=== PATIENT | female | born 1985 | race Asian ===

== ENCOUNTER 2017-08-12 08:56 | Day surgery (SDC) | payer BC ==
[~2017-08-12] VITALS: Ht 121.9 cm; Wt 36.9 kg
[2017-08-12 09:30] VITALS: Ht 121.9 cm; Wt 36.9 kg
[2017-08-12] MEDS ORDERED: PRED1TAB17 PO (09:49)
[2017-08-12] MEDS ORDERED: AZAT50TA31 PO (09:49)
[2017-08-12] MEDS ORDERED: FERR140T2 PO (09:49)
[2017-08-12] MEDS ORDERED: PROPOFOL 40 ML ONE (10:12)
[2017-08-12] MEDS ORDERED: LIDOCAINE 100 MG SYRINGE ONE (10:12)
[2017-08-12 10:27] VITALS: BP 109/67; PULSE 85; RESP 18
--- NOTE | 2017-08-12 10:47 | OPPN ---
Date/Time of Note Date/Time of Note DATE: 08/12/17 TIME: 10:46 Proc Note GI Procedure Date 08/12/17 Indication: diagnostic Pre-procedure Diagnosis Iron deficiency anemia Post-procedure Diagnosis EGD Gastritis Colonoscopy Normal into terminal ileum Procedure Performed: Endoscopy, Colonoscopy Surgeon see signature line General Assistant none Anesthesia Type: MAC Tourniquet Time none EBL none Transfusion required none Biopsy 1: Gastric biopsy Grafts/Implants none Tubes/Drains none Complication(s) none Disposition: PACU Procedure Description Dictated JEREL ERAZO MD Aug 12, 2017 10:47
[2017-08-12 11:20] VITALS: BP 112/64; RESP 20
--- NOTE | 2017-08-12 12:40 | GILP ---
DATE OF PROCEDURE: PROCEDURE PERFORMED: Esophagogastroduodenoscopy with biopsy. INDICATION: A 31-year-old female undergoing this procedure for iron deficiency anemia. The patient has got lupus erythematosus. The risk of the procedure, related and unrelated complications, anest hetic risks, alternatives discussed and informed consent was obtained. DESCRIPTION OF PROCEDURE: The patient was brought to the GI lab, sedated by Dr. Marcos. After opti mum sedation, scope was passed with much ease into esophagus. Z line was at 34 cm. Stomach mucosa revealed gastritis. Multiple biopsies obtained to rule out H. pylori infection. Duodenum, first an d second part including ampulla appeared normal. Retroversion in the stomach also was normal. Scop e was straightened out and removed with excellent patient tolerance. IMPRESSION: 1. Gastritis. 2. Normal esophagus. 3. Z line regular at 35 cm. 4. Normal duodenum and ampulla. Plan: Review histopathology. Dictated By: JEREL CIFUENTES/ENRICO Conf#: [id number] DID#: [id number]
--- NOTE | 2017-08-12 12:40 | GILP ---
DATE OF PROCEDURE: COLONOSCOPY REPORT: The patient was turned around, scope was passed with much ease into rectum, adv anced through sigmoid, descending, transverse colon all the way into cecum. Appendiceal orifice and IC valve identified. While coming out, mucosa thoroughly inspected. The rest of the colon appeare d normal. Terminal ileum also was normal. Clarity and cleanliness was good. IMPRESSION: 1. Normal findings all the way into cecum. 2. Normal terminal ileum up to 2 feet. 3. Clarity and cleanliness was good. PLAN: This finding cannot explain iron deficiency anemia. If patient has got true iron deficiency anemia, then I would like to do a capsule endoscopy in the office. Dictated By: JEREL CIFUENTES/ENRICO Conf#: [id number] DID#: [id number]
== END 2017-08-12 11:28 | disposition home or self-care (01) ==
LOC: GIL 08:56
PROVIDERS: ATTEND Internal Medicine Gastroenterology
DX: D50.9 Iron deficiency anemia, unspecified (principal); K29.70 Gastritis, unspecified, without bleeding
CPT/HCPCS: 43239; 45378; 84703; 88305; 88312; J2001; Z7610

== ENCOUNTER 2017-09-03 08:45 | Day surgery (SDC) | END 2017-09-03 13:28 | disposition home or self-care (01) ==